=== PATIENT | male | born 1965 | race Native Hawaiian/Other Pacific Islander ===

== ENCOUNTER 2017-01-09 14:47 | Outpatient (CLI) | payer OTHER ==
[~2017-01-09 14:47] MED LIST: ACET7.5T70 PO; ALBUTEROL0.083 % IN; BENADRYL25 M1 OR; COLC0.6T6 PO; DULO60CA2 OR; FERR325T5 PO; HYDR25TA60 PO; KETOROLAC15 MG/ML IJ; MICARDIS40 MG OR; MULTIVITAMIN OR; NEXIUM40 M1 OR; PROAIR HFA IN; SIMV20TA2 PO; SPIRIVA IN; TIZA4TAB5 PO; ULTRAM50 MG OR; ZOLP10TA2 PO
[2017-01-09 15:12] LABS: PLATELET COUNT 176 K/uL (142-355)
[2017-01-09 15:41] LABS: POTASSIUM 4.1 mmol/L (3.6-5.2); SODIUM 138 mmol/L (136-145)
== END 2017-01-09 15:50 | disposition home or self-care (01) ==
LOC: LAB 14:47
PROVIDERS: Nurse Practitioner Family
DX: K21.9 Gastro-esophageal reflux disease without esophagitis (principal); I10 Essential (primary) hypertension; E55.9 Vitamin D deficiency, unspecified; Z79.899 Other long term (current) drug therapy; N40.0 Benign prostatic hyperplasia without lower urinary tract symptoms; Z51.81 Encounter for therapeutic drug level monitoring
CPT/HCPCS: 80053; 80061; 82306; 82607; 83036; 84154; 84436; 84443; 85027

== ENCOUNTER 2017-04-17 15:11 | Outpatient (CLI) | payer OTHER ==
[2017-04-17 15:50] LABS: PLATELET COUNT 158 K/uL (142-355)
[2017-04-17 16:13] LABS: SODIUM 141 mmol/L (136-145)
== END 2017-04-17 21:14 | disposition home or self-care (01) ==
LOC: LAB 15:11
PROVIDERS: Nurse Practitioner Family
DX: I10 Essential (primary) hypertension (principal); K21.9 Gastro-esophageal reflux disease without esophagitis; E55.9 Vitamin D deficiency, unspecified; Z79.899 Other long term (current) drug therapy; Z51.81 Encounter for therapeutic drug level monitoring
CPT/HCPCS: 80053; 80061; 83036; 84436; 84443; 85027

== ENCOUNTER 2017-08-12 09:39 | Emergency (ER) | payer OTHER ==
[~2017-08-12] VITALS: Ht 170.2 cm; Wt 115.2 kg
[2017-08-12 09:45] VITALS: TEMP 98.3
[2017-08-12 11:51] VITALS: BP 148/88
== END 2017-08-12 11:52 | disposition home or self-care (01) ==
LOC: ED 09:39
DX: R21 Rash and other nonspecific skin eruption (principal); L50.8 Other urticaria; S40.262A Insect bite (nonvenomous) of left shoulder, initial encounter; S40.261A Insect bite (nonvenomous) of right shoulder, initial encounter; S10.86XA Insect bite of other specified part of neck, initial encounter; S40.862A Insect bite (nonvenomous) of left upper arm, initial encounter; S40.861A Insect bite (nonvenomous) of right upper arm, initial encounter; S20.96XA Insect bite (nonvenomous) of unspecified parts of thorax, initial encounter; W57.XXXA Bitten or stung by nonvenomous insect and other nonvenomous arthropods, initial encounter; Y92.098 Other place in other non-institutional residence as the place of occurrence of the external cause
CPT/HCPCS: 36415; 96374; 96375; 99284; J1200; J1720

== ENCOUNTER 2019-04-19 07:50 | Outpatient (CLI) | payer OTHER | END 2019-04-19 19:55 | disposition home or self-care (01) | LOC: RESP 07:50 | DX: R06.02 Shortness of breath (principal) ==

== ENCOUNTER 2019-06-16 07:44 | Outpatient (CLI) | payer OTHER | END 2019-06-16 19:25 | disposition home or self-care (01) | LOC: CT 07:44 | DX: R05 Cough (principal) ==

== ENCOUNTER 2021-12-03 12:16 | Outpatient (CLI) | payer OTHER ==
[2021-12-03 12:49] LABS: PLATELET COUNT 183 K/uL (142-355)
[2021-12-03 13:10] LABS: POTASSIUM 3.6 mmol/L (3.6-5.2)
== END 2021-12-03 19:03 | disposition home or self-care (01) ==
LOC: LABW 12:16
PROVIDERS: ATTEND Nurse Practitioner Family
DX: D64.89 Other specified anemias (principal); M19.90 Unspecified osteoarthritis, unspecified site; I25.10 Atherosclerotic heart disease of native coronary artery without angina pectoris; C91.90 Lymphoid leukemia, unspecified not having achieved remission; J44.9 Chronic obstructive pulmonary disease, unspecified; E78.49 Other hyperlipidemia; Z79.899 Other long term (current) drug therapy; I10 Essential (primary) hypertension; G47.00 Insomnia, unspecified; R73.03 Prediabetes; E53.8 Deficiency of other specified B group vitamins; E55.9 Vitamin D deficiency, unspecified; E66.9 Obesity, unspecified; Z87.891 Personal history of nicotine dependence; Z09 Encounter for follow-up examination after completed treatment for conditions other than malignant neoplasm
CPT/HCPCS: 36415; 80053; 80061; 81000; 82043; 82306; 82570; 82607; 83036; 84153; 84439; 84443; 85027; 87088

== ENCOUNTER 2022-02-20 10:15 | Outpatient (CLI) | payer OTHER ==
[~2022-02-20] VITALS: Ht 170.2 cm; Wt 106.7 kg
[2022-02-20 10:45] VITALS: BP 117/72; TEMP 98.9
[2022-02-20 11:45] VITALS: BP 12/70
[2022-02-20 12:00] VITALS: BP 112/69; TEMP 98.6
[2022-02-20 12:30] VITALS: BP 108/68; TEMP 98.7
== END 2022-02-20 19:36 | disposition home or self-care (01) ==
LOC: INF 10:15
PROVIDERS: ATTEND Internal Medicine
DX: Z23 Encounter for immunization (principal); U07.1 COVID-19
CPT/HCPCS: 96367; 96374; Q0222

== ENCOUNTER 2022-03-28 13:26 | Outpatient (CLI) | payer OTHER ==
[~2022-03-28 13:26] MED LIST changes: +ACID REDUCER20 MG PO; +ALBU90AE13 INH; +ASCO500T18 PO; +B-100 PO; +D350 MCG PO; +FERROUS SULF325 M1 OR; +FLONASE AL50 MCG/ACT NAS; +GABA300C2 PO; +LEVO-T25 MCG PO; +LOSA50TA PO; +MICARDIS40 MG PO; +MONTELUKAST SOD10 MG PO; +MULTIVITAMI1 PO; +NEXIUM40 M1 PO; +STIOLTO RESPIMA1 AER INH; +TIOTCAP2 INH; +TRAM50TA PO; +TRAZODONE HYDRO50 MG PO; +[UNRECOGNIZED DRUG - OTHER] PO
== END 2022-03-28 19:26 | disposition home or self-care (01) ==
LOC: MRI 13:26
PROVIDERS: ATTEND Pain Medicine Interventional Pain Medicine
DX: M54.17 Radiculopathy, lumbosacral region (principal); I10 Essential (primary) hypertension; E78.49 Other hyperlipidemia
CPT/HCPCS: 36415; 80061

== ENCOUNTER 2022-05-08 11:54 | Outpatient (CLI) | payer OTHER | END 2022-05-08 19:13 | disposition home or self-care (01) | LOC: RAD 11:54 | PROVIDERS: ATTEND Nurse Practitioner Family | DX: R05.8 Other specified cough (principal) ==

== ENCOUNTER 2022-05-30 10:05 | Outpatient (CLI) | payer OTHER ==
[2022-05-30 10:35] LABS: PLATELET COUNT 165 K/uL (142-355)
[2022-05-30 10:54] LABS: POTASSIUM 3.7 mmol/L (3.6-5.2)
== END 2022-05-30 19:03 | disposition home or self-care (01) ==
LOC: LABW 10:05
PROVIDERS: ATTEND Internal Medicine
DX: N18.31 Chronic kidney disease, stage 3a (principal); R53.83 Other fatigue; M10.09 Idiopathic gout, multiple sites; Z79.899 Other long term (current) drug therapy; E53.8 Deficiency of other specified B group vitamins; R79.89 Other specified abnormal findings of blood chemistry
CPT/HCPCS: 36415; 80053; 81002; 82043; 82330; 82550; 82570; 82607; 82728; 82746; 83036; 83540; 83550; 83735; 83970; 84100; 84156; 84439; 84443; 84550; 85027; 85652; 86038; 86140

== ENCOUNTER 2022-06-04 07:20 | Outpatient (CLI) | payer OTHER ==
[2022-06-04 07:47] LABS: PLATELET COUNT 152 K/uL (142-355)
[2022-06-04 08:11] LABS: POTASSIUM 3.3 mmol/L (3.6-5.2)
== END 2022-06-04 19:34 | disposition home or self-care (01) ==
LOC: LABW 07:20
PROVIDERS: ATTEND Nurse Practitioner Family
DX: I25.10 Atherosclerotic heart disease of native coronary artery without angina pectoris (principal); M19.90 Unspecified osteoarthritis, unspecified site; D64.9 Anemia, unspecified; C91.90 Lymphoid leukemia, unspecified not having achieved remission; J44.9 Chronic obstructive pulmonary disease, unspecified; E78.5 Hyperlipidemia, unspecified; I82.409 Acute embolism and thrombosis of unspecified deep veins of unspecified lower extremity; I10 Essential (primary) hypertension; G47.00 Insomnia, unspecified; R73.03 Prediabetes
CPT/HCPCS: 36415; 80053; 80061; 81002; 82043; 82570; 83036; 84436; 84443; 85027

== ENCOUNTER 2022-07-08 16:27 | Observation (INO) | payer OTHER ==
[~2022-07-08] VITALS: Ht 170.2 cm; Wt 112.0 kg
[~2022-07-08 16:27] MED LIST changes: +DULO60CA2 PO
[2022-07-08 16:30] VITALS: BP 125/77; TEMP 98.3
[2022-07-08 17:27] LABS: POTASSIUM 3.1 mmol/L (3.6-5.2)
[2022-07-08 17:37] LABS: PLATELET COUNT 280 K/uL (142-355)
[2022-07-09] VITALS (7 sets, daily range): BP systolic 117–150; BP diastolic 63–89; TEMP 98.2–98.9; Ht 170.2 cm; Wt 112.0 kg
[2022-07-09 05:45] LABS: PLATELET COUNT 264 K/uL (142-355)
[2022-07-09 05:46] LABS: POTASSIUM 3.7 mmol/L (3.6-5.2)
[2022-07-09] MEDS ORDERED: ELIQUIS5 MG PO (11:58)
[2022-07-09] MEDS ORDERED: ALLO300T23 PO (12:02)
[2022-07-09] MEDS ORDERED: NORCO 10/325***1 TAB PO (12:02)
[2022-07-09] MEDS ORDERED: LOSA50TA PO (12:03)
[2022-07-09] MEDS ORDERED: SIMV40TA57 PO (12:07)
[2022-07-09] MEDS ORDERED: SPIRIVA HANDIH18 MCG INH (12:08)
[2022-07-09] MEDS ORDERED: MITIGARE0.6 MG PO (12:11)
[2022-07-10 00:28] VITALS: BP 140/69; TEMP 98.8
[2022-07-10 04:00] VITALS: BP 153/80; TEMP 98.9
[2022-07-10 05:13] LABS: PLATELET COUNT 308 K/uL (142-355)
[2022-07-10 05:29] LABS: POTASSIUM 3.8 mmol/L (3.6-5.2)
[2022-07-10 08:00] VITALS: BP 146/74; TEMP 98.3
[2022-07-10 12:00] VITALS: BP 142/73; TEMP 98.4
[2022-07-10] MEDS ORDERED: AZIT250T3 PO (13:45)
[2022-07-10] MEDS ORDERED: PRED10TA27 PO (13:50)
[2022-07-10] MEDS ORDERED: ALBU90AE13 INH (13:52)
== END 2022-07-10 15:36 | disposition home or self-care (01) ==
LOC: ED 16:27 → MED/SURG 19:00
PROVIDERS: ADMIT Emergency Medicine Emergency Medical Services; ATTEND Internal Medicine
DX: J18.1 Lobar pneumonia, unspecified organism (principal); Z11.52 Encounter for screening for COVID-19; J44.9 Chronic obstructive pulmonary disease, unspecified; J45.998 Other asthma; Z85.6 Personal history of leukemia; I10 Essential (primary) hypertension; Z86.718 Personal history of other venous thrombosis and embolism; Z79.01 Long term (current) use of anticoagulants; I87.8 Other specified disorders of veins; M15.8 Other polyosteoarthritis; G89.29 Other chronic pain; M10.9 Gout, unspecified; E03.9 Hypothyroidism, unspecified; R73.9 Hyperglycemia, unspecified
CPT/HCPCS: 36415; 80048; 80053; 82948; 83036; 83630; 83735; 85007; 85027; 87015; 87040; 87045; 87070; 87205; 87324; 87449; 87502; 87635; 87899; 94664; 94760; 96360; 96361; 96365; 96366; 96367; 96374; 96375; 96376; 99220; 99284; G0378; J0456; J0696; J2930; U0003

== ENCOUNTER 2022-07-24 10:07 | Outpatient (CLI) | payer OTHER ==
[~2022-07-24 10:07] MED LIST changes: +ALLO300T23 PO; +AZIT250T3 PO; +ELIQUIS5 MG PO; +MITIGARE0.6 MG PO; +NORCO 10/325***1 TAB PO; +PRED10TA27 PO; +SIMV40TA57 PO; +SPIRIVA HANDIH18 MCG INH
== END 2022-07-24 19:54 | disposition home or self-care (01) ==
LOC: RAD 10:07
PROVIDERS: ATTEND Internal Medicine Sleep Medicine
DX: J18.9 Pneumonia, unspecified organism (principal)

== ENCOUNTER 2022-08-20 10:43 | Outpatient (CLI) | payer OTHER | END 2022-08-20 22:01 | disposition home or self-care (01) | LOC: CT 10:43 | PROVIDERS: ATTEND Nurse Practitioner Family | DX: Z09 Encounter for follow-up examination after completed treatment for conditions other than malignant neoplasm (principal); Z87.891 Personal history of nicotine dependence ==

== ENCOUNTER 2022-09-02 15:49 | Inpatient (IN) | payer OTHER ==
[~2022-09-02] VITALS: Ht 195.6 cm; Wt 102.1 kg
[2022-09-02 15:58] VITALS: BP 102/61; TEMP 99.4
[2022-09-02 16:44] LABS: PLATELET COUNT 211 K/uL (142-355)
[2022-09-02 17:13] LABS: POTASSIUM 3.6 mmol/L (3.6-5.2)
[2022-09-02 21:05] VITALS: BP 108/61; TEMP 99.9
[2022-09-02] MEDS ORDERED: MONT10TA PO (21:38)
[2022-09-02] MEDS ORDERED: VITAMIN B1100 M1 PO (21:39)
[2022-09-02] MEDS ORDERED: ALBUTEROL108 MCG/AC INH (21:41)
[2022-09-02] MEDS ORDERED: ALBUTEROL0.083 % INH (21:41)
[2022-09-02] MEDS ORDERED: TRELEGY ELLIPTA1 AER INH (21:41)
[2022-09-02 23:22] VITALS: BP 108/61; TEMP 99.9; Ht 195.6 cm; Wt 102.1 kg
[2022-09-03] VITALS: BP 91/47; TEMP 98.3
[2022-09-03 04:00] VITALS: BP 104/68; TEMP 98.2
[2022-09-03 05:19] LABS: PLATELET COUNT 195 K/uL (142-355)
[2022-09-03 05:28] LABS: POTASSIUM 3.7 mmol/L (3.6-5.2)
[2022-09-03 08:00] VITALS: BP 117/64; TEMP 98.7
[2022-09-03 12:00] VITALS: BP 108/66; TEMP 98.4
[2022-09-03 16:00] VITALS: BP 120/57; TEMP 98.3
[2022-09-03 20:00] VITALS: BP 126/61; TEMP 98.4
[2022-09-04] VITALS: BP 125/63; TEMP 98.4
[2022-09-04 04:00] VITALS: BP 123/72; TEMP 98.3
[2022-09-04 08:00] VITALS: BP 135/67; TEMP 98.4
[2022-09-04 12:00] VITALS: BP 132/70; TEMP 98.4
[2022-09-04] MEDS ORDERED: PRED10TA27 PO (15:21)
[2022-09-04] MEDS ORDERED: AZIT250T3 PO (15:21)
== END 2022-09-04 20:05 | disposition home or self-care (01) | DRG 191 ==
LOC: ED 15:49 → MED/SURG 20:16
PROVIDERS: ADMIT Emergency Medicine Emergency Medical Services; ATTEND Internal Medicine
DX: J44.1 Chronic obstructive pulmonary disease with (acute) exacerbation (principal); R17 Unspecified jaundice; R09.02 Hypoxemia; Z79.01 Long term (current) use of anticoagulants; E03.8 Other specified hypothyroidism; E78.49 Other hyperlipidemia; Z85.6 Personal history of leukemia; M15.8 Other polyosteoarthritis; D64.89 Other specified anemias
CPT/HCPCS: 36415; 36600; 80048; 80053; 80074; 81002; 82805; 83735; 83880; 84484; 85027; 85379; 87040; 87070; 87205; 93005; 94664; 94760; 96360; 96361; 96365; 96366; 96375; 99284; J0456; J0696; J2930

== ENCOUNTER 2022-09-16 08:22 | Outpatient (CLI) | payer OTHER ==
[~2022-09-16 08:22] MED LIST changes: +ALBUTEROL0.083 % INH; +ALBUTEROL108 MCG/AC INH; +MONT10TA PO; +TRELEGY ELLIPTA1 AER INH; +VITAMIN B1100 M1 PO
== END 2022-09-16 21:22 | disposition home or self-care (01) ==
LOC: LABW 08:22
PROVIDERS: ATTEND Nurse Practitioner Adult Health
DX: E78.2 Mixed hyperlipidemia (principal)
CPT/HCPCS: 36415; 80061; 80076

== ENCOUNTER 2022-10-16 10:08 | Outpatient (CLI) | payer OTHER | END 2022-10-16 19:13 | disposition home or self-care (01) | LOC: RAD 10:08 | PROVIDERS: ATTEND Nurse Practitioner Family | DX: J18.9 Pneumonia, unspecified organism (principal) ==

== ENCOUNTER 2022-11-22 10:57 | Outpatient (CLI) | payer OTHER | END 2022-11-22 18:57 | disposition home or self-care (01) | LOC: CT 10:57 | PROVIDERS: ATTEND Nurse Practitioner Family | DX: R91.1 Solitary pulmonary nodule (principal) ==

== ENCOUNTER 2023-03-20 09:47 | Outpatient (CLI) | payer OTHER | END 2023-03-20 19:35 | disposition home or self-care (01) | LOC: RAD 09:47 | PROVIDERS: ATTEND Nurse Practitioner Family | DX: J44.1 Chronic obstructive pulmonary disease with (acute) exacerbation (principal) ==

== ENCOUNTER 2023-08-17 14:55 | Emergency (ER) | payer OTHER ==
[~2023-08-17] VITALS: Ht 195.6 cm; Wt 113.4 kg
[2023-08-17 15:15] VITALS: TEMP 98.7
[2023-08-17] MEDS ORDERED: HYDROCODONE ACETAMINOPHEN PO PRN (17:19)
[2023-08-17] MEDS ORDERED: HYDROCODONE ACETAMINOPHEN PO ONE (17:32)
[2023-08-17 18:31] LABS: PLATELET COUNT 169 K/uL (142-355)
[2023-08-17 18:33] LABS: POTASSIUM 4.5 mmol/L (3.6-5.2)
[2023-08-17] MEDS ORDERED: TORADOL 60MG/2ML INJ IM ONE ×2 (18:44→19:34)
[2023-08-17 19:00] VITALS: BP 112/68
[2023-08-17] MEDS ORDERED: TORADOL 30MG/ML INJ ONE (19:07)
[2023-08-17] MEDS ORDERED: TORADOL 30MG/ML INJ IM ONE (19:34)
== END 2023-08-17 19:40 | disposition still patient (30) ==
LOC: ED 14:55
PROVIDERS: Internal Medicine Endocrinology, Diabetes & Metabolism
DX: R07.81 Pleurodynia (principal); R05.3 Chronic cough; R06.02 Shortness of breath; J44.9 Chronic obstructive pulmonary disease, unspecified; J18.9 Pneumonia, unspecified organism
CPT/HCPCS: 36415; 80053; 85007; 85027; 96372; 99283; J1885